=== PATIENT | male | born 1940 | race Hispanic/Latino ===

== ENCOUNTER 2020-03-22 09:08 | Outpatient (CLI) | payer MEDICARE, OTHER ==
[2020-03-22] MEDS ORDERED: Iopamidol 370 76% 100 ML VIAL ONE (09:39)
--- NOTE | 2020-03-22 17:43 | CT ---
CT ABDOMEN AND PELVIS WITH CONTRAST: Date: 03-22-2020 Comparison: 03-06-18 FINDINGS: Bilateral pleural effusions of a moderate amount are present, etiology unknown. The visible portions of the lungs do seem clear. The heart does not appear enlarged. Some coronary artery calcifications a re seen in the LAD. CT of the upper abdomen shows elevation of the right hemidiaphragm which is chronic. The liver is not ed more posteriorly than anteriorly but is normal in size. The spleen and the pancreas showed no acut e findings. Gallstones are noted in the gallbladder, but it is not distended or thickened. The aorta shows calcification but no aneurysm. Nonobstructing renal calculi are seen bilaterally. The right colon through splenic flexure seems to have somewhat thick walled consistent with the histo ry of colitis. The more distal portions of the colon are slightly thick but not as much. Free fluid i s present in both the upper abdomen and pelvic region. No free air was seen. CT of the pelvis showed no additional findings aside from those listed above. 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 IMPRESSION: 1. Diffuse colonic thickening of a moderate degree from right colon through splenic flexure and mild distal to that. 2. Moderate bilateral pleural effusions and free fluid in the abdomen and pelvis. 3. Gallstones (present previously). 4. Bilateral nonobstructing renal calculi. 5. Coronary arterial sclerosis. POS: HOME
== END 2020-03-22 09:09 | disposition home or self-care (01) ==
LOC: BURCT 09:08
PROVIDERS: ATTEND Family Medicine
DX: Z01.812 Encounter for preprocedural laboratory examination (principal); K51.90 Ulcerative colitis, unspecified, without complications; K63.89 Other specified diseases of intestine; J90 Pleural effusion, not elsewhere classified; K80.20 Calculus of gallbladder without cholecystitis without obstruction; N20.0 Calculus of kidney; I25.10 Atherosclerotic heart disease of native coronary artery without angina pectoris
CPT/HCPCS: 36415; 74177; 82565; Q9967